=== PATIENT | male | born 1995 | race African-American/Black ===

== ENCOUNTER 2017-02-18 12:55 | Emergency (ER) | payer SELFPAY ==
[~2017-02-18] VITALS: Ht 193 cm; Wt 63.5 kg
[2017-02-18 13:34] VITALS: BP 128/70
[2017-02-18] MEDS ORDERED: AZITHROMYCIN 250 MG TABLET. PO ONE (13:45)
[2017-02-18] MEDS ORDERED: cefTRIAXone IM 250 MG VIAL IM ONE (13:45)
[2017-02-18] MEDS ORDERED: metroNIDAZOLE 500 MG TABLET PO ONE (13:45)
[2017-02-18 13:50] LABS: BILIRUBIN,URINE NEGATIVE (NEG); GLUCOSE,URINE NEGATIVE (NEG); NITRITE,URINE NEGATIVE (NEG); PH,URINE 6.5; PROTEIN,URINE NEGATIVE (NEG-TRACE)
[2017-02-18 14:02] LABS: BACTERIA,URINE 0 /HPF (0-FEW); RBC,URINE 0 /HPF (0-2); SQUAMOUS EPITHELIAL CELL,UR FEW /LPF
--- NOTE | 2017-02-18 14:05 | PHYS DOC ---
Past Medical History Past Medical History: Asthma Past Surgical History: Other Additional Past Surgical Histo: RIGHT EYE Alcohol Use: Occasionally Drug Use: None Adult General Chief Complaint Chief Complaint: SEXUALLY TRANSMITTED DISEASE HPI HPI Patient is a 21 year old male with history of asthma who presents with STD concerns. Patient would like to be tested and treated. Patient denies any symptoms. Review of Systems Review of Systems Constitutional: Denies fever or chills [] GI: STD concerns. Denies abdominal pain, nausea, vomiting, bloody stools or diarrhea [] : Denies dysuria or hematuria [] Musculoskeletal: Denies back pain or joint pain [] Integument: Denies rash or skin lesions [] Neurologic: Denies headache, focal weakness or sensory changes [] All other systems were reviewed and found to be within normal limits, except as documented in this note. Current Medications Current Medications Current Medications Medications (Trade) Dose Ordered Sig/Whit Start Time Stop Time Status Last Admin Dose Admin Azithromycin (Zithromax) 1,000 mg 1X ONCE 02/18/17 13:45 02/18/17 13:47 DC 02/18/17 14:03 1,000 MG Ceftriaxone Sodium (Rocephin Im) 250 mg 1X ONCE 02/18/17 13:45 02/18/17 13:47 DC 02/18/17 14:03 250 MG Metronidazole (Flagyl) 2,000 mg 1X ONCE 02/18/17 13:45 02/18/17 13:47 DC 02/18/17 14:03 2,000 MG Allergies Allergies Allergies Coded Allergies Type Severity Reaction Last Updated Verified No Known Drug Allergies 02/18/17 No Physical Exam Physical Exam Constitutional: Well developed, well nourished, no acute distress, non-toxic appearance. [] Abdomen: Bowel sounds normal, soft, no tenderness, no masses, no pulsatile masses. [] Skin: Warm, dry, no erythema, no rash. [] Back: No tenderness, no CVA tenderness. [] Extremities: No tenderness, no cyanosis, no clubbing, ROM intact, no edema. [] Neurologic: Alert and oriented X 3, normal motor function, normal sensory function, no focal deficits noted. [] Psychologic: Affect normal, judgement normal, mood normal. [] Current Patient Data Vital Signs Vital Signs Date Time Temp Pulse Resp B/P (MAP) Pulse Ox O2 Delivery O2 Flow Rate FiO2 02/18/17 13:34 97.5 72 18 128/70 (89) 99 Room Air 97.5 Lab Values Laboratory Tests Test 02/18/17 13:40 Urine Collection Type Unknown Urine Color Yellow Urine Clarity Hazy Urine pH 6.5 Urine Specific [place] 1.025 Urine Protein Negative mg/dL (NEG-TRACE) Urine Glucose (UA) Negative mg/dL (NEG) Urine Ketones (Stick) Negative mg/dL (NEG) Urine Blood Negative (NEG) Urine Nitrite Negative (NEG) Urine Bilirubin Negative (NEG) Urine Urobilinogen Dipstick 2.0 mg/dL (0.2 mg/dL) Urine Leukocyte Esterase Small (NEG) Urine RBC 0 /HPF (0-2) Urine WBC 5-10 /HPF (0-4) Urine Squamous Epithelial Cells Few /LPF Urine Bacteria 0 /HPF (0-FEW) Urine Mucus Mod /LPF EKG EKG [] Radiology/Procedures Radiology/Procedures [] Course & Med Decision Making Course & Med Decision Making Pertinent Labs and Imaging studies reviewed. (See chart for details) Patient is in the ED with STD concerns. Urine was sent to lab, he was treated with Rocephin Flagyl and azithromycin and educated on safe sex practices especially the need to use protection at all times. Reminded to contact all his sex partners and let them know he was treated for STDs and ask them to seek treatment too. Follow-up with the health department for further STD concerns. Importance of protection during sex recommended. Dragon Disclaimer Dragon Disclaimer This electronic medical record was generated, in whole or in part, using a voice recognition dictation system. Departure Departure Impression: Primary Impression: Concern about STD in male without diagnosis Disposition: 01 HOME, SELF-CARE Condition: STABLE Referrals: NO PCP (PCP) Follow-up with the health department Patient Instructions: Sexually Transmitted Disease, [id number] Additional Instructions: You were seen with concern for STDs. You were treated in the emergency room. Urine was sent to lab, we will call you in 3-7 days on the ED for your test is positive. If he doesn't hear from us in one week the test is likely negative. Use protection at all times. Contact all your partners let them know you were treated for STDs and ask them to seek treatment too. Do not have sex for 7 days. Please use protection anytime you have sex. SOFIE GUZMAN GEOTECH[employer]ICAL INTERN Feb 18, 2017 14:05
--- NOTE | 2017-02-21 16:02 | VNOTE ---
CALL BACK NOTE CALL BACK Patient is positive for chlamydia and gonorrhea, he was already treated. Results communicated to patient as well as education. SOFIE GUZMAN APRN Feb 21, 2017 16:02
== END 2017-02-18 14:36 | disposition home or self-care (01) ==
LOC: ER 12:55
DX: Z20.2 Contact with and (suspected) exposure to infections with a predominantly sexual mode of transmission (principal); J45.909 Unspecified asthma, uncomplicated
CPT/HCPCS: 81001; 87491; 87591; 96372; 99284; J0696; Q0144

== ENCOUNTER 2017-05-19 13:54 | Emergency (ER) | payer SELFPAY ==
[2017-05-19] MEDS: ALBUTEROL SULFATE 2.5 MG/3 ML NEBU. NEB ×2 (15:41)
== END 2017-05-19 16:34 | disposition home or self-care (01) ==
LOC: ER 13:54
DX: J06.9 Acute upper respiratory infection, unspecified (principal); B97.89 Other viral agents as the cause of diseases classified elsewhere; J45.909 Unspecified asthma, uncomplicated
CPT/HCPCS: 71045; 94640; 99283-25; J7613